=== PATIENT | female | born 1985 | race Caucasian/White ===

== ENCOUNTER 2019-07-06 10:53 | Day surgery (SDC) | payer OTHER ==
[2019-07-06] MEDS ORDERED: KETOROLAC 30 MG/ML VIAL IVP ONE (10:54)
[2019-07-06] MEDS ORDERED: KETAMINE 500 MG/10 ML VIAL IVP ONE (10:54)
[2019-07-06] MEDS ORDERED: MIDAZOLAM 2 MG/2 ML VIAL IVP ONE (10:54)
[2019-07-06] MEDS ORDERED: PROPOFOL 200 MG/20 ML VIAL IVP ONE (10:54)
[2019-07-06] MEDS ORDERED: LACTATED RINGERS 1,000 ML IV ONE (11:06)
[2019-07-06] MEDS ORDERED: CEFAZOLIN SODIUM IN 0.9 % NACL 0 GM/0 ML BAG IV ONE (11:12)
[2019-07-06] MEDS ORDERED: SCOPOLAMINE PATCH TOP ONE (11:12)
[2019-07-06] MEDS ORDERED: BUPIVACAINE 0.25% PF 30 ML VIAL ONE (11:13)
[2019-07-06 11:20] LABS: HCG UR QUAL NEGATIVE
--- NOTE | 2019-07-06 11:35 | ANESTHESIA ---
Pre-Anesthesia VS, & Labs - Diagnosis right carpal tunnel syndrome - Procedure right carpal tunnel release Vital Signs: Temp Pulse Resp BP Pulse Ox 36.7 C 85 16 133/82 H 100 07/06/19 11:06 07/06/19 11:06 07/06/19 11:06 07/06/19 11:06 07/06/19 11:06 Height 5 ft 5 in Weight (kg) 140.16 kg - NPO >8 hours - Is Patient ?: No Home Medications and Allergies Home Medications: Ambulatory Orders Cholecalciferol (Vitamin D3) [Vitamin D3] 1,000 unit PO DAILY 06/21/19 Escitalopram Oxalate [Lexapro] 20 mg PO DAILY 06/21/19 [place]-3/Dha/Epa/Fish Oil [Fish Oil 1,000 mg Softgel] 1 each PO DAILY 06/21/19 Vitamin B Complex 1 each PO DAILY 06/21/19 Active Medications Cefazolin Sodium 3 gm/ Sodium (Chloride) 100 mls @ 200 mls/hr IV ONCE ONE Stop: 07/06/19 12:29 Cholecalciferol (Vitamin D3) [Vitamin D3] 1,000 unit PO DAILY 06/21/19 Escitalopram Oxalate [Lexapro] 20 mg PO DAILY 06/21/19 [place]-3/Dha/Epa/Fish Oil [Fish Oil 1,000 mg Softgel] 1 each PO DAILY 06/21/19 Vitamin B Complex 1 each PO DAILY 06/21/19 Allergies/Adverse Reactions: Allergies Allergy/AdvReac Type Severity Reaction Status Date / Time No Known Drug Allergies Allergy Verified 06/21/19 11:52 Anes History & Medical History - Anesthetic History Anesthesia Complications: reports: No previous complications, Other-see comment (wakes up crying) - Medical History Cardiovascular: reports: None Pulmonary: reports: None Gastrointestinal: reports: None Urinary: reports: None Neuro: reports: None Musculoskeletal: reports: None Endocrine/Autoimmune: reports: None Blood Disorders: reports: None Skin: reports: None Smoking Status: Never smoker Psychosocial: reports: Depression - Surgical History General: Other Eyes Ears Nose Throat (EENT): Tonsil/Adenoidectomy Gynecologic: Dilation and currettage Orthopedic: Arthroscopic surgery Exam General: Alert, Oriented x3, Cooperative, No acute distress Dental: WNL Mouth Openin Fingerbreadth Neck Mobility: Normal Mallampati classification: I Thyromental Distance: greater than 6 cm Respiratory: Lungs clear, Normal breath sounds, No respiratory distress, No accessory muscle use Cardiovascular: Regular rate, Normal S1, Normal S2, No murmurs Mental/Cognitive Status: Alert/Oriented X3, Normal for patient Plan Anesthesia Type: MAC Consent for Procedure(s) Verified and Reviewed: Yes Code Status: Attempt Resuscitation ASA classification: 2-Mild systemic disease Is this case an emergency?: No
[2019-07-06] MEDS ORDERED: LIDOCAINE-MPF 1% 30 ML VIAL ONE (11:45)
[2019-07-06] MEDS ORDERED: ceFAZolin 3 GM in SODIUM CHLORIDE 0.9% 100ML 100 ML IV ONE (12:00)
[2019-07-06] MEDS ORDERED: BUPIVACAINE 0.25% PF 30 ML VIAL SUBQ ONE (12:04)
[2019-07-06] MEDS ORDERED: LIDOCAINE 1% 50 ML MDV SUBQ ONE ×2 (12:05)
[2019-07-06] MEDS ORDERED: oxyCODONE 5 MG TABLET PO PRN (12:45)
[2019-07-06] MEDS ORDERED: ONDANSETRON 4 MG/2 ML VIAL IVP PRN (12:45)
--- NOTE | 2019-07-06 12:56 | OPERATIVE REPORT ---
Operative Report - General Procedure Date: 07/06/19 - Other Other Information/Narrative: Date of Procedure: 06 July 2019 Planned Procedure: Right open carpal tunnel release Pre-op diagnosis: Right carpal tunnel syndrome Procedure performed: Right open carpal tunnel release Post-op diagnosis: Right carpal tunnel syndrome Primary Surgeon: JONAS TORRES Secondary Surgeon: Winsome Anesthesia: MAC with local EBL: 10 ml Tourniquet: 14 minutes, right upper arm at 250mmHg. 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 They had failed non-operartive management to include night splinting and desired surgical intervention. Treatment alternatives were discussed to include continued nonoperative management with night splinting, corticosteroid injections as well as carpal tunnel release . Risks of surgery were discussed to include bleeding, infection, postoperative wrist stiffness, damage to nerves (including the median nerve and recurrent motor branch to the thenar musculature), vessels, tendons, ligaments, anesthesia complications to include medication side effects and allergic reactions, blood clot, stroke, heart attack and even . After a discussion, they wished to proceed. Findings: Thickened transverse carpal ligament Descriptions of Procedure: The patient was met in the Preoperative Holding Area, at which time preoperative paperwork was confirmed. The right volar wrist was signed. The patient was then brought to Main Operating Room, placed supine on the Operating Room table and monitored anesthesia care was initiated. The operative extremity was then prepped and draped over a hand table in the normal sterile fashion after a well- padded tourniquet was placed on the proximal arm. A surgical timeout was conducted to confirm the correct patient, correct extremity and correct procedure and to confirm that antibiotics (3 g IV cefazolin) had been administered within 30 minutes of incision time. Local anesthesia was obtained using 12 mL's of 1% lidocaine plain injected distally from the distal wrist crease to the distal extent of the transverse carpal ligament, as well as proximally over the fascia of the forearm. Surgical anesthesia was confirmed using a pair of Adson forceps, and with no response was obtained, the procedure was initiated. The operative extremity was then exsanguinated with an Esmarch bandage and tourniquet inflated to 250mmHg. Bryant's cardinal line, and the ulnar border of the flexed fourth digit, the hook of hamate and pisiform were marked on the hand. A 3cm longitudinal incision was made with a #15 blade through skin and subcutaneous tissue. Dissection was further carried out with tenotomy scissors. Small crossing vessels were coagulated with bipolar electrocautery, the palmar fascia was exposed, and split longitudinally in line with its fibers, the fat was retracted ulnarly, and the transverse carpal ligament was exposed. A 15 blade was used to make a small incision in the transverse carpal ligament, and then a small mosquito clamp was introduced directly deep to the ligament above the contents of the carpal tunnel to gently free off any adhesions between the deep surface of the transverse carpal ligament and the median nerve. Dissection was carried distally under direct visualization, releasing the transverse carpal ligament until the palmar fat was was visualized. Digital examination was performed to ensure that there were no remaining tight bands constricting the nerve. Attention was then turned proximally, and a [place] elevator was passed deep to the transverse carpal ligament and antebrachial fascia, and these were incised in line with the nerve approximately 2 cm proximal to the distal wrist crease. This was performed under direct visualization. Again digital examination of the proximal extent of the release was performed to ensure no tight bands or constrictive points remained over the nerve. Satisfied that the carpal tunnel had been completely released, the wound was irrigated, and the tourniquet was let down. Pressure was held on the incision for approximately 5 minutes, and bleeding points were then cauterized with bipolar electrocautery. After ensuring good hemostasis, the wound was again irrigated and then closed using 4-0 Ethilon in interrupted horizontal mattress fashion. 10 mL of quarter percent Marcaine plain, was injected into the anthony-incisional soft tissues. The wound was then dressed with Xeroform, 4 x 4 gauze webril and a compressive Elian wrap. The patient was then brought to the Post Anesthesia Care unit for further recovery. Postoperative Plan: 1. The patient will be discharged from the Same Day Surgery Unit when discharge criteria are met. 2. The patient will remain in a soft dressing until follow-up. They can begin gentle wrist range of motion on postoperative day #1 or #2 as pain allows. 3. The patient will follow up in 10-14 days for a wound check and suture removal. 4. Expect return to full duty in 6-8 weeks, they may have wrist stiffness postoperatively.
[2019-07-06 13:42] VITALS: BP 120/76
== END 2019-07-06 10:54 | disposition home or self-care (01) ==
LOC: SDS 10:53
PROVIDERS: ATTEND Orthopaedic Surgery
PROC: 01N50ZZ Release Median Nerve, Open Approach (ICD-10-PCS; principal; 2019-07-06 13:00)
DX: G56.01 Carpal tunnel syndrome, right upper limb (principal)
CPT/HCPCS: 64721; 81025; J3490; J7120

== ENCOUNTER 2020-07-04 06:32 | Day surgery (SDC) | payer OTHER ==
[2020-07-04] MEDS ORDERED: LACTATED RINGERS 1,000 ML IV ONE ×2 (06:48→08:25)
[2020-07-04 06:58] LABS: HCG UR QUAL NEGATIVE
[2020-07-04] MEDS ORDERED: LIDOCAINE 1%-EPI 1:100000 20 ML MDV ONE (07:09)
[2020-07-04] MEDS ORDERED: PROPOFOL 200 MG/20 ML VIAL IVP ONE (07:15)
[2020-07-04] MEDS ORDERED: LIDOCAINE-MPF 2% 5 ML VIAL IM ONE (07:15)
[2020-07-04] MEDS ORDERED: LIDOCAINE 1%-EPI 1:100000 20 ML MDV SUBQ ONE ×2 (07:44)
[2020-07-04] MEDS ORDERED: BUPIVACAINE 0.25% PF 30 ML VIAL SUBQ ONE ×2 (07:54)
[2020-07-04] MEDS ORDERED: ceFAZolin 3 GM in SODIUM CHLORIDE 0.9% 100ML 100 ML IV ONE (08:00)
[2020-07-04] MEDS ORDERED: BUPIVACAINE 0.25% PF 30 ML VIAL ONE (08:00)
--- NOTE | 2020-07-04 08:04 | ANESTHESIA ---
Pre-Anesthesia VS, & Labs - Diagnosis Left carpal tunnel syndrome - Procedure Left carpal tunnel release Vital Signs: Temp Pulse Resp BP Pulse Ox 36.4 C L 87 18 119/93 H 98 07/04/20 06:51 07/04/20 06:51 07/04/20 06:51 07/04/20 06:51 07/04/20 06:51 Height: 5 ft 5 in Weight (kg): 140.16 kg Body Mass Index: 51.4 BMI Classification: Morbidly Obese - NPO >8 hours - Is Patient ?: No Home Medications and Allergies Home Medications: Ambulatory Orders Dextroamphetamine/Amphetamine [Adderall 10 mg Tablet] 10 mg PO BID 06/27/20 Active Medications Cefazolin Sodium 3 gm/ Sodium (Chloride) 100 mls @ 200 mls/hr IV ONCE ONE Stop: 07/04/20 08:29 Cholecalciferol (Vitamin D3) [Vitamin D3] 1,000 unit PO DAILY 06/21/19 Escitalopram Oxalate [Lexapro] 20 mg PO DAILY 06/21/19 [place]-3/Dha/Epa/Fish Oil [Fish Oil 1,000 mg Softgel] 1 each PO DAILY 06/21/19 Vitamin B Complex 1 each PO DAILY 06/21/19 Dextroamphetamine/Amphetamine [Adderall 10 mg Tablet] 10 mg PO BID 06/27/20 Allergies/Adverse Reactions: Allergies Allergy/AdvReac Type Severity Reaction Status Date / Time No Known Drug Allergies Allergy Verified 07/04/20 06:59 Anes History & Medical History - Anesthetic History Anesthesia Complications: reports: No previous complications Family history of Anesthesia Complications: Denies Family history of Malignant Hyperthermia: Denies - Medical History Cardiovascular: reports: None Pulmonary: reports: None Gastrointestinal: reports: None Urinary: reports: None Neuro: reports: None Musculoskeletal: reports: Other Endocrine/Autoimmune: reports: None Blood Disorders: reports: None Skin: reports: None Smoking Status: Never smoker - Surgical History General: Other Eyes Ears Nose Throat (EENT): Tonsil/Adenoidectomy Gynecologic: Dilation and currettage Orthopedic: Arthroscopic surgery, Carpal Tunnel surgery Exam General: Alert Dental: WNL Mouth Openin Fingerbreadth Neck Mobility: Normal Mallampati classification: II Thyromental Distance: 4-6 cm Respiratory: Lungs clear, Normal breath sounds, No respiratory distress, No accessory muscle use Cardiovascular: Regular rate, Normal S1, Normal S2, No murmurs Plan Anesthesia Type: MAC Consent for Procedure(s) Verified and Reviewed: Yes Code Status: Attempt Resuscitation ASA classification: 3-Severe systemic disease Is this case an emergency?: No
[2020-07-04] MEDS ORDERED: HYDROmorphone 0.5 MG/0.5 ML SYRINGE IVP PRN (08:05)
[2020-07-04] MEDS ORDERED: NALOXONE 0.4 MG/ML VIAL IVP PRN (08:05)
[2020-07-04] MEDS ORDERED: fentaNYL 100 MCG/2 ML VIAL IVP PRN (08:05)
[2020-07-04] MEDS ORDERED: ePHEDrine 50 MG/ML VIAL IVP PRN (08:05)
[2020-07-04] MEDS ORDERED: ATROPINE ABBOJECT 1 MG/10 ML SYRINGE IVP PRN (08:05)
[2020-07-04] MEDS ORDERED: diphenhydrAMINE INJ 50 MG/ML VIAL IVP PRN (08:05)
[2020-07-04] MEDS ORDERED: ACETAMINOPHEN 1,000 MG/100 ML 100 ML IV ONE (08:05)
[2020-07-04] MEDS ORDERED: MORPHINE 2 MG/ML CARPUJECT IVP PRN (08:05)
[2020-07-04] MEDS ORDERED: ONDANSETRON 4 MG/2 ML VIAL IVP PRN ×2 (08:05→08:25)
[2020-07-04] MEDS ORDERED: oxyCODONE 5 MG TABLET PO PRN (08:25)
--- NOTE | 2020-07-04 08:31 | OPERATIVE REPORT ---
Operative Report - General Procedure Date: 07/04/20 - Procedure Note Primary Surgeon: JUNE TORRES Secondary Surgeon: WINSOME Anesthesia Technique: Local, MAC Estimated Blood Loss (mL): 10 - Other Other Information/Narrative: Date of Procedure: 04 July 2020 Planned Procedure: Left open carpal tunnel release Pre-op diagnosis: Left carpal tunnel syndrome Procedure performed: Left open carpal tunnel release Post-op diagnosis: Left carpal tunnel syndrome Primary Surgeon: JONAS TORRES Secondary Surgeon: Winsome Anesthesia: MAC with local EBL: 10 ml Tourniquet: 16 minutes, left upper arm at 250mmHg. 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 She had previously undergone a right open carpal tunnel release with good results. She had good, but temporary benefit from an injection. She had failed non-operative management to include night splinting and desired surgical intervention. Treatment alternatives were discussed to include continued nonoperative management with night splinting, corticosteroid injections as well as carpal tunnel release. Risks of surgery were discussed to include bleeding, infection, postoperative wrist stiffness, damage to nerves (including the median nerve and recurrent motor branch to the thenar musculature), vessels, tendons, ligaments, anesthesia complications to include medication side effects and allergic reactions, blood clot, stroke, heart attack and even . After a discussion, they wished to proceed. Findings: Thickened transverse carpal ligament Descriptions of Procedure: The patient was met in the Preoperative Holding Area, at which time preoperative paperwork was confirmed. The left volar wrist was signed. The patient was then brought to Main Operating Room, placed supine on the Operating Room table and monitored anesthesia care was initiated. A surgical timeout was conducted to confirm the correct patient, correct extremity and correct procedure. Local anesthesia was obtained using 10 mL's of 1% lidocaine plain injected distally from the distal wrist crease to the distal extent of the transverse carpal ligament, as well as proximally over the fascia of the forearm. The operative extremity was then prepped and draped over a hand table in the normal sterile fashion after a well-padded tourniquet was placed on the proximal arm. A surgical timeout was again conducted to confirm the correct patient, correct e xtremity and correct procedure and to confirm that antibiotics (3 g IV cefazolin) had been administered within 30 minutes of incision time. Surgical anesthesia was confirmed using a pair of Adson forceps, and with no response was obtained, the procedure was initiated. The operative extremity was then exsanguinated with an Esmarch bandage and tourniquet inflated to 250mmHg. Bryant's cardinal line, and the ulnar border of the flexed fourth digit and the hook of hamate were marked on the hand. A 3cm longitudinal incision was made with a #15 blade through skin and subcutaneous tissue. Dissection was further carried out with tenotomy scissors. Small crossing vessels were coagulated with bipolar electrocautery, the palmar fascia was exposed, and split longitudinally in line with its fibers, the fat was retracted ulnarly, and the transverse carpal ligament was exposed. A 15 blade was used to make a small incision in the transverse carpal ligament, and then a small mosquito clamp was introduced directly deep to the ligament above the contents of the carpal tunnel to gently free off any adhesions between the deep surface of the transverse carpal ligament and the median nerve. Dissection was carried distally under direct visualization, releasing the transverse carpal ligament until the palmar fat was was visualized. A freer was passed to ensure that there were no remaining tight bands constricting the nerve. Attention was then turned proximally, and a [place] elevator was passed deep to the transverse carpal ligament and antebrachial fascia, and these were incised in line with the nerve approximately 2 cm proximal to the distal wrist crease. This was performed under direct visualization. Again freer examination of the proximal extent of the release was performed to ensure no tight bands or constrictive points remained over the nerve. Satisfied that the carpal tunnel had been completely released, the wound was irrigated, and the tourniquet was let down. Pressure was held on the incision for approximately 5 minutes, and bleeding points were then cauterized with bipolar electrocautery. After ensuring good hemostasis, the wound was again irrigated and then closed using 4-0 Ethilon in interrupted horizontal mattress fashion. 10 mL of quarter percent Marcaine plain, was injected into the anthony-incisional soft tissues. The wound was then dressed with Xeroform, 4 x 4 gauze, rusty and a compressive Elian wrap. The patient was then brought to the Post Anesthesia Care unit for further recovery. Postoperative Plan: 1. The patient will be discharged from the Same Day Surgery Unit when discharge criteria are met. 2. The patient will remain in a soft dressing until follow-up. They can begin gentle wrist range of motion on postoperative day #1 or #2 as pain allows. 3. The patient will follow up in 10-14 days for a wound check and suture removal. 4. Expect return to full duty in 6-8 weeks, they may have wrist stiffness postoperatively.
[2020-07-04 08:42] VITALS: BP 110/74
[2020-07-04] MEDS ORDERED: LACTATED RINGERS 1,000 ML IV SCH (09:00)
--- NOTE | 2020-07-04 09:27 | ANESTHESIA POST OP EVALUATION ---
Anesthesia Post Eval - Post Anesthesia Eval Vitals: Last Vital Signs Temp 36.1 C L 07/04/20 08:42 Pulse 85 07/04/20 08:42 Resp 15 07/04/20 08:42 BP 110/74 07/04/20 08:42 Pulse Ox 98 07/04/20 08:42 CV Function Including HR & BP: positive: Stable Pain Control: positive: Satisfactory Nausea & Vomiting: positive: Negative Mental Status: positive: Baseline Respiratory Status: Airway Patent Hydration Status: Satisfactory Anesthesia Complications: positive: None
== END 2020-07-04 06:33 | disposition home or self-care (01) ==
LOC: SDS 06:32
PROVIDERS: ATTEND Orthopaedic Surgery
DX: G56.02 Carpal tunnel syndrome, left upper limb (principal); E66.01 Morbid (severe) obesity due to excess calories; Z68.43 Body mass index [BMI] 50.0-59.9, adult; F41.9 Anxiety disorder, unspecified
CPT/HCPCS: 81025